=== PATIENT | female | born 1950 | race Hispanic/Latino ===

== ENCOUNTER 2020-11-27 21:38 | Emergency (ER) | payer MEDICARE, OTHER ==
[~2020-11-27] VITALS: Ht 152.4 cm; Wt 61.2 kg
[2020-11-27] MEDS ORDERED: ACETAMINOPHEN 325 MG TAB PO ONE (22:00)
[2020-11-27] MEDS ORDERED: IBUPROFEN 200 MG TAB PO ONE (22:00)
[2020-11-27] MEDS ORDERED: ACETAMINOPHEN-1 EAC4 PO (22:12)
[2020-11-27] MEDS ORDERED: ONDANSETRON ODT4 MG PO (22:12)
[2020-11-27] MEDS ORDERED: IBUPROFEN IB200 MG PO (22:12)
[2020-11-27] MEDS ORDERED: IBUPROFEN 600 MG TAB ONE (23:52)
[2020-11-27] MEDS ORDERED: ACETAMINOPHEN 325 MG TAB ONE (23:53)
[2020-11-28 00:22] VITALS: BP 108/67
== END 2020-11-28 00:22 | disposition home or self-care (01) ==
LOC: FSED 22:05
DX: S82.61XA Displaced fracture of lateral malleolus of right fibula, initial encounter for closed fracture (principal); S92.191A Other fracture of right talus, initial encounter for closed fracture; V47.5XXA Car driver injured in collision with fixed or stationary object in traffic accident, initial encounter; Y92.488 Other paved roadways as the place of occurrence of the external cause; M81.8 Other osteoporosis without current pathological fracture
CPT/HCPCS: 99283